=== PATIENT | male | born 1940 | race Caucasian/White ===

== ENCOUNTER 2024-04-13 12:23 | Outpatient (CLI) | payer MEDICARE, OTHER, SELFPAY ==
--- NOTE | 2024-04-13 13:00 | CRLHL7_ITS ---
For Patients: As a result of the Century Cures Act, medical imaging exams and procedure reports are released immediately into your electronic medical record. You may view this report before your referring provider. If you have questions, please contact your health care provider. 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 Comparison: Chest x-ray 05/14/2013 Findings: Ovoid nodule within the right lower neck measuring 2.6 cm, incompletely visualized. No suspicious thyroid nodule. Dense atherosclerotic changes. No enlarged lymph nodes within the mediastinum, lizz or axilla. Simple cysts are present in the upper pole of the right kidney. 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 No vertebral body compression fracture. Postop changes right upper lobectomy. Small ill-defined densities within the left upper lobe are present. In addition, there is a larger area of subsolid density within the superior segment left lower lobe measuring 1.9 cm in transverse dimension and extending over a AP dimension of approximately 3.3 cm. No pleural effusion. No pulmonary edema. Impression: Postop changes of right upper lobectomy. Ill-defined indeterminate parenchymal masslike density within the superior segment left lower lobe measuring approximately 1.9 x 3.3 cm. Indeterminate solid nodular density within the right lower neck measuring 2.[address] neck recommended. Please note that all CT scans at this facility use dose modulation, iterative reconstruction, and/or weight-based dosing when appropriate to reduce radiation dose to as low as reasonably achievable. Dictated by Frederic Bennett MD @ 04/13/2024 1:08:35 PM (Electronically Signed)
== END 2024-04-13 12:24 | disposition home or self-care (01) ==
PROVIDERS: PCP Internal Medicine; Visit Provider Radiology Radiation Oncology
DX: C34.32 Malignant neoplasm of lower lobe, left bronchus or lung (principal); R91.8 Other nonspecific abnormal finding of lung field
CPT/HCPCS: 71250

== ENCOUNTER 2024-10-14 12:45 | Outpatient (CLI) | payer MEDICARE, OTHER, SELFPAY | END 2024-10-14 12:46 | disposition home or self-care (01) | LOC: CT 12:48 | PROVIDERS: PCP Internal Medicine; Visit Provider Physician Assistant | DX: C34.32 Malignant neoplasm of lower lobe, left bronchus or lung (principal) | CPT/HCPCS: 71250 ==

== ENCOUNTER 2025-04-12 09:30 | Outpatient (CLI) | payer MEDICARE, OTHER, SELFPAY ==
--- NOTE | 2025-04-12 10:00 | CRLHL7_ITS ---
For Patients: As a result of the Century Cures Act, medical imaging exams and procedure reports are released immediately into your electronic medical record. You may view this report before your referring provider. If you have questions, please contact your health care provider. Indication: MALIGNANT NEOPLASM OF LUNG. ADENOCARCINOMA. S/P SBRT TO LLL EVAL FOR RECURRENCE Technique: Noncontrast CT chest Please note that all CT scans at this facility use dose modulation, iterative reconstruction, and/or weight-based dosing when appropriate to reduce radiation dose to as low as reasonably achievable. Comparison: 10/14/2024 Findings: Stable mass within the superior segment of the left lower lobe adjacent to the hilum. Also stable ground-glass densities within the left upper lobe. Stable subpleural nodule left upper lobe. Postop changes to the right lung. No pleural effusion. No new nodule. No pneumothorax. No adenopathy. Atherosclerotic changes. Right renal cysts. Ankylosis thoracic spine. No fracture. Impression: No significant change since the prior study. Stable exam. Please note that all CT scans at this facility use dose modulation, iterative reconstruction, and/or weight-based dosing when appropriate to reduce radiation dose to as low as reasonably achievable. Dictated by Frederic Bennett MD @ 04/12/2025 10:40:43 AM (Electronically Signed)
== END 2025-04-12 09:31 | disposition home or self-care (01) ==
LOC: CT 09:32
PROVIDERS: PCP Internal Medicine; Visit Provider Radiology Radiation Oncology
DX: C34.91 Malignant neoplasm of unspecified part of right bronchus or lung (principal)
CPT/HCPCS: 71250